=== PATIENT | female | born 1985 | race Caucasian/White ===

== ENCOUNTER 2018-11-07 12:19 | Emergency (ER) | payer BC ==
[2018-11-07 12:24] VITALS: BP 116/81; PULSE 58; TEMP 97.8; BMI 23.8
--- NOTE | 2018-11-07 12:48 | PDOC ---
History of Present Illness - General Chief Complaint: Pain, Acute Stated Complaint: LOWER ABD PAIN Time Seen by Provider: 11/07/18 12:20 - History of Present Illness Initial Comments: 11/07/18 13:17 32-year-old female with no significant past medical history presents to the emergency department with lower abdominal pain since 5:30 AM. She reports the pain began initially in her left lower back but then began to radiate around to her left lower quadrant and across to her right lower quadrant. Pt had c- section 6 weeks ago. She reports the pain initially was crampy and 6 out of 10 but now has improved. She denies any associated nausea, vomiting, fevers, chills , diarrhea. She reports her last bowel movement was 2 days ago and was a bit loose, but not bloody. Patient is not breast-feeding. Has not gotten her period yet. She reports her was not complicated, but she does have a hematoma under the incision. States her OB Dr. Gonzales has been monitoring the hematoma as it resolves. Pt was seen by Dr. Gonzales yesterday, had a normal pelvic exam. She denies vaginal bleeding or discharge. She admits to having various migrating abdominal pain over the last 6 weeks that has resolved on its own. When she called her doctor this morning, she advised her to come in for a CTAP but pt preferred to come to the ED instead for further evaluation. Denies recent headache, dizziness, focal weakness/numbness, CP, SOB, LE edema. Past History - Past Medical History Allergies/Adverse Reactions: Allergies Allergy/AdvReac Type Severity Reaction Status Date / Time amoxicillin Allergy Verified 11/07/18 12:20 Home Medications: Ambulatory Orders Prenat 115/Iron Fum/Folic/Dss [ 19 Tablet] 1 each PO DAILY 11/07/18 Rivaroxaban [Xarelto -] 20 mg PO DAILY #70 tablet 11/07/18 Rivaroxaban [Xarelto] 15 mg PO BID #41 tab 11/07/18 COPD: No - Suicide/Smoking/Psychosocial Hx Smoking History: Never smoked Hx Alcohol Use: No Drug/Substance Use Hx: No Review of Systems - Review of Systems Comments:: 11/07/18 13:22 GENERAL/CONSTITUTIONAL: No fever or chills. No weakness. HEAD, EYES, EARS, NOSE AND THROAT: No change in vision. No ear pain or discharge. No sore throat. GASTROINTESTINAL: No nausea, vomiting, diarrhea or constipation GENITOURINARY: No dysuria, frequency, or change in urination. +lower abd pain CARDIOVASCULAR: No chest pain or shortness of breath. RESPIRATORY: No cough, wheezing, or hemoptysis. MUSCULOSKELETAL: No joint or muscle swelling or pain. No neck pain. +L lower back pain SKIN: No rash NEUROLOGIC: No headache, vertigo, loss of consciousness, or change in strength/ sensation. ENDOCRINE: No increased thirst. No abnormal weight change. HEMATOLOGIC/LYMPHATIC: No anemia, easy bleeding, or history of blood clots. ALLERGIC/IMMUNOLOGIC: No hives or skin allergy. *Physical Exam - Vital Signs Last Vital Signs Temp Pulse Resp BP Pulse Ox 97.8 F 58 L 16 116/81 100 11/07/18 12:19 11/07/18 12:19 11/07/18 12:19 11/07/18 12:19 11/07/18 12:19 - Physical Exam Comments: 11/07/18 13:23 GENERAL: Awake, alert, and fully oriented, in no acute distress. Reading on phone. EYES: PERRLA, EOMI, sclera anicteric, conjunctiva clear ENT: Oropharynx clear without exudates. Moist mucosa NECK: Normal ROM, supple, no lymphadenopathy, JVD, or masses LUNGS: Breath sounds equal, clear to auscultation bilaterally. No wheezes, and no crackles HEART: Regular rate and rhythm, normal S1 and S2, no murmurs, rubs or gallops ABDOMEN: Soft, nontender, normoactive bowel sounds. No guarding, no rebound. No masses : No CVAT BACK: No midline cercival, thoracic, or lumbar ttp. No paraspinal ttp throughout entire back EXTREMITIES: Normal range of motion, no edema. No cords, erythema, or tenderness NEUROLOGICAL: Normal speech, cranial nerves intact, equal strength and sensation b/l SKIN: Midline c-spine incision clean, dry and intact with no ttp or erythema. No significant palpable collection. SKin exam otherwise, warm, dry, normal turgor, no rashes or lesions noted. ED Treatment Course - LABORATORY CBC & Chemistry Diagram: 11/07/18 13:20 11/07/18 13:20 Medical Decision Making - Medical Decision Making 11/07/18 13:24 32yo F recent 6 weeks ago presents to the ED with left lower back pain and lower abd pain since 5:30am, now improved Vitals wnl Exam with no abd ttp or back ttp, very benign Plan to check labs, UA, reassess abd exam Will withhold imaging for now given benign exam Pt declines pain medication Labs wnl UA negative In light of persistent lower abd pain and post- state, I had a lengthy discussion with pt and her about risks/benefits of advanced imaging. After, shared decision making, a CTAP was obtained Per radiology read - possible thrombosis vs flow phenomena in L gonadal vein Spoke with Dr. Cohen (radiologist), recommends discussed with Dr. Hawkins to see if MRV is a possibility for further evaluation Spoke with Dr. 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 Gonzales. She reports pt had a lot of vascular insufficiency during her with leg swelling and varicose veins and was referred to vascular. She requests that we discuss the L gonada vein thrombosis with our vascular team educational program assistant Case discussed with Dr. Phani Mckay who recommends anticoagulation as this is a DVT. He recommends xarelto 15mg BID x 21 days, then 20mg daily for remainder of 3 month course. He will f/u with pt as an outpatient Results, consultations with Dr. Gonzales/Dr. Mckay, and plan discussed with patient/ They are in agreement, all questions answered I called pt's pharmacy to ensure xarelto is covered by her insurance. Per pharmacist, it is covered and pt would only have $15 copay. Informed pt of this , she will strip picker medications upon discharge. We are unable to give her the first dose as we only have 20mg stocked. Pt and will proceed directly to the pharmacy. Return precautions discussed She is clinically stable for DC home *DC/Admit/Observation/Transfer Diagnosis at time of Disposition: Thrombosis of pelvic vein, Abdominal pain, complication - Discharge Dispostion Disposition: HOME Condition at time of disposition: Stable - Prescriptions Prescriptions: Rivaroxaban [Xarelto] 15 mg PO BID #41 tab Rivaroxaban [Xarelto -] 20 mg PO DAILY #70 tablet - Referrals Referrals: Phani Mckay, [Staff Physician] - - Patient Instructions Printed Discharge Instructions: DI for Deep Vein Thrombosis Additional Instructions: 1) Follow up with Dr. Mckay, the vascular doctor, within 1 week. A referral has been included in this packet. 2) Take the blood thinner Xarelto as prescribed for 3 months Initially, you will be taking 15mg twice a day for 21 days When this is completed, you are to take 20mg once a day for the rest of the course 3) Follow up with Dr. Gonzales within 1 week as well. She has been updated about our findings, diagnosis, and treatment plan today 4) Return to the emergency department if you have any new, worsening, or concerning symptoms such as bleeding, worsening pain, or fevers. - Post Discharge Activity - Attestations Physician Attestion: 11/07/18 17:07 I, Dr. Hakan Quach MD, attest that this document has been prepared under my direction and personally reviewed by me in its entirety. I further attest, that it accurately reflects all work, treatment, procedures and medical decision -making performed by me.
[2018-11-07 13:35] LABS: BASO % 0.5 % (0-2.0); EOS % 1.8 % (0-4.5); HEMOGLOBIN 13.8 GM/dl (10.7-15.3); LYMPH % 31.6 % (8-40); MCH 28.4 pg (25.7-33.7); MCHC 32.8 g/dl (32.0-36.0); MEAN CELL VOLUME 86.5 fl (80-96); MEAN PLT VOLUME 7.3 fl (7.5-11.1); MONO % 6.5 % (3.8-10.2); NEUT % 59.6 % (42.8-82.8); PLATELET COUNT 296 K/MM3 (134-434); RBC 4.86 M/mm3 (3.60-5.2); RDW 13.5 % (11.6-15.6); WHITE BLOOD COUNT 5.1 K/mm3 (4.0-10.8)
[2018-11-07 13:50] LABS: BILIRUBIN,TOTAL 0.7 mg/dl (0.2-1); CALCIUM 8.9 mg/dl (8.5-10); CREATININE 0.8 mg/dl (0.55-1.3); POTASSIUM 4.1 mmol/L (3.5-5.1); TOT PROT 7.2 g/dl (6.4-8.2)
[2018-11-07] MEDS ORDERED: RIVAROXABAN 15 MG TABLET PO ONE (17:09)
== END 2018-11-07 17:30 | disposition home or self-care (01) ==
LOC: FER 12:19
DX: I82.890 Acute embolism and thrombosis of other specified veins (principal); R10.9 Unspecified abdominal pain; T81.89XA Other complications of procedures, not elsewhere classified, initial encounter
CPT/HCPCS: 36415; 74177-TC; 80053; 81003; 84703; 85025; 87086; 99283-25